=== PATIENT | male | born 1970 | race Caucasian/White ===

== ENCOUNTER 2019-04-26 04:27 | Inpatient (IN) | payer OTHER, MEDICAID, SELFPAY ==
[2019-04-26] VITALS (15 sets, daily range): BP systolic 123–151; BP diastolic 81–117; PULSE 85–112; RESP 14–22; TEMP 36.6–37.2; O2SAT 94–100; BMI 23.1
--- NOTE | 2019-04-26 04:35 | DI.RAD.S_ITS ---
PROCEDURE: XR CHEST 1V INDICATIONS: chest pain TECHNIQUE: One view of the chest was acquired. COMPARISON: None. FINDINGS: Surgical changes and devices: None. Lungs and pleura: Lungs are clear. No pleural effusions or pneumothorax. Mediastinum: Mediastinal contours appear normal. Heart size is normal. Bones and chest wall: No suspicious bony lesions. Overlying soft tissues appear unremarkable. IMPRESSION: No evidence acute pulmonary process. Dictated by: Varinder Becker M.D. on 04/26/2019 at 9:37 Approved by: Varinder Becker M.D. on 04/26/2019 at 9:37
[2019-04-26] MEDS: SODIUM CHLORIDE 0.9% 1,000 ML 1000 ML IV (04:50)
[2019-04-26 04:52] LABS: Add Manual Diff / Slide Review NO; Basophils Absolute Auto 0 /uL (0-100); Basophils Percent Auto 0.2 % (0-2); Eosinophils Absolute Auto 200 /uL (0-450); Hematocrit 47.8 % (41-53); Hemoglobin 16.6 g/dL (13.5-17.5); Lymphocytes Absolute Auto 3000 /uL (1100-4500); Lymphocytes Percent Auto 39.5 % (25-40); Mean Corpuscular HGB Conc 34.7 % (30-36); Mean Corpuscular Hemoglobin 28.2 PG (26-34); Mean Corpuscular Volume 81.4 fL (80-100); Monocytes Absolute Auto 600 /uL (0-900); Monocytes Percent Auto 8.2 % (3-14); Neutrophils Absolute Auto 3800 /uL (1500-7000); Neutrophils Percent Auto 49.1 % (50-75); Platelet Count 169 X10^3/uL (150-400); Red Blood Cell Count 5.88 X10^6/uL (4.5-5.9); Red Cell Distribution Width 15.9 % (11.6-14.8); White Blood Cell Count 7.7 X10^3/uL (4.5-11.0)
[2019-04-26] MEDS: LORazepam 2 MG/ML INJ IV ×3 (04:56→15:10)
[2019-04-26] MEDS: ONDANSETRON 4 MG/2 ML INJ IV ×2 (04:56→10:37)
[2019-04-26] MEDS: THIAMINE 100 MG in DEXTROSE 5 % IN WATER 50 ML 204 ML IV (05:02)
[2019-04-26 05:06] LABS: Acetaminophen < 10 ug/mL (10-30); Creatine Kinase 40 U/L (55-170); Ethanol (ETOH) 66 mg/dL; Lipase 198 U/L (23-300); PTT Partial Thromboplastin Tim 37 SECONDS (26.4-36.2); Salicylate < 1.0 mg/dL (<20)
[2019-04-26 05:16] LABS: D Dimer 226 ng/mL (<230)
[2019-04-26 05:18] LABS: Troponin I < 0.012 ng/mL (0.01-0.034)
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
[2019-04-26 05:20] LABS: Alanine Aminotransferase 156 IU/L (21-72); Albumin 4.7 g/dL (3.5-5.0); Albumin Globulin Ratio 1.2 (1.0-2.8); Alkaline Phosphatase 148 U/L (38-126); Aspartate Aminotransferase 248 IU/L (17-59); BUN Creatinine Ratio 4.3 (6-22); Bilirubin Total 3.1 mg/dL (0.2-1.3); Blood Urea Nitrogen 3 mg/dL (9-20); Calcium 9.7 mg/dL (8.4-10.2); Carbon Dioxide 21 mmol/L (22-32); Chloride 95 mmol/L (98-107); Estimated Glomerular Filt Rate > 60.0 mL/min (>60); Globulin 3.9 g/dL (1.7-4.1); Glucose 131 mg/dL (70-100); HEMOLYSIS < 15 (0-50); Sodium 136 mmol/L (137-145); Total Protein 8.6 g/dL (6.3-8.2)
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
--- NOTE | 2019-04-26 05:26 | DI.US.S_ITS ---
PROCEDURE: US ABDOMEN LIMITED INDICATIONS: RIGHT UPPER QUADRANT PAIN; ELEVATED TRANSAMINASES TECHNIQUE: Real-time focused scanning was performed of the abdomen, with image documentation. COMPARISON: None. FINDINGS: Severe fatty infiltration throughout the liver. No liver mass lesion is seen. Mild sludge is seen within the gallbladder lumen, non-obstructive. No evidence of acute cholecystitis. The common duct measures up to 4.6 mm, normal. The pancreas visualized appears normal also. IMPRESSION: Normal limited right upper quadrant ultrasound except for presence of severe fatty infiltration throughout the liver. Dictated by: Ernesto Betancur M.D. on 04/26/2019 at 8:13 Approved by: Ernesto Betancur M.D. on 04/26/2019 at 8:15
[2019-04-26 06:46] LABS: Bacteria Urine None Seen; RBC Urine None Seen (0-5/HPF); WBC Urine None Seen (0-5/HPF)
[2019-04-26 06:55] LABS: Culture Indicated Urine Cult Not Indicated; Urine Comments Microscopic Normal
[2019-04-26] MEDS: THIAMINE 100 MG TABLET PO (10:09)
[2019-04-26] MEDS: MULTIVITAMIN 1 TABLET 1 TAB PO (10:09)
[2019-04-26] MEDS: FOLIC ACID 1 MG TABLET PO (10:09)
[2019-04-26] MEDS: chlordiazePOXIDE 25 MG CAPSULE 50 MG PO (10:37)
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
--- NOTE | 2019-04-26 15:31 | PM.CHAP ---
Visited with Derek and his Linda. Had a productive spiritual conversation. Offered Prayer.
[2019-04-26] MEDS: MAGNESIUM SULFATE 2 GM, FOLIC ACID 1 MG, THIAMINE 100 MG, MULTIVITAMIN 10 ML in SODIUM ... IV (15:40)
[2019-04-26] MEDS: PANTOPRAZOLE 40 MG PACKET PO (16:56)
[2019-04-26] MEDS: chlordiazePOXIDE 25 MG CAPSULE 75 MG PO (17:48)
[2019-04-27] VITALS (12 sets, daily range): BP systolic 110–149; BP diastolic 76–100; PULSE 83–111; RESP 12–28; TEMP 35.9–37.5; O2SAT 95–99
[2019-04-27] MEDS: LORazepam 2 MG/ML INJ IV ×8 (00:01→23:48)
[2019-04-27 05:13] LABS: Add Manual Diff / Slide Review NO; Basophils Absolute Auto 100 /uL (0-100); Basophils Percent Auto 1.2 % (0-2); Eosinophils Absolute Auto 300 /uL (0-450); Eosinophils Percent Auto 5.6 % (2-4); Hematocrit 42.4 % (41-53); Hemoglobin 14.3 g/dL (13.5-17.5); Lymphocytes Absolute Auto 1500 /uL (1100-4500); Lymphocytes Percent Auto 33.1 % (25-40); Mean Corpuscular HGB Conc 33.8 % (30-36); Mean Corpuscular Hemoglobin 27.9 PG (26-34); Mean Corpuscular Volume 82.4 fL (80-100); Monocytes Absolute Auto 300 /uL (0-900); Monocytes Percent Auto 6.3 % (3-14); Neutrophils Absolute Auto 2500 /uL (1500-7000); Neutrophils Percent Auto 53.8 % (50-75); Platelet Count 91 X10^3/uL (150-400); Red Blood Cell Count 5.15 X10^6/uL (4.5-5.9); Red Cell Distribution Width 15.1 % (11.6-14.8); White Blood Cell Count 4.6 X10^3/uL (4.5-11.0)
[2019-04-27 05:20] LABS: Alanine Aminotransferase 97 IU/L (21-72); Albumin 3.5 g/dL (3.5-5.0); Alkaline Phosphatase 100 U/L (38-126); Aspartate Aminotransferase 119 IU/L (17-59); BUN Creatinine Ratio 8.6 (6-22); Bilirubin Total 3.9 mg/dL (0.2-1.3); Blood Urea Nitrogen 6 mg/dL (9-20); Carbon Dioxide 27 mmol/L (22-32); Chloride 98 mmol/L (98-107); Estimated Glomerular Filt Rate > 60.0 mL/min (>60); Globulin 3.5 g/dL (1.7-4.1); Glucose 99 mg/dL (70-100); HEMOLYSIS < 15 (0-50); Magnesium 2.2 mg/dL (1.6-2.3); Potassium 3.4 mmol/L (3.4-5.1); Sodium 134 mmol/L (137-145)
[2019-04-27] MEDS: PANTOPRAZOLE 40 MG PACKET PO (06:37)
--- NOTE | 2019-04-27 07:07 | PC.NURSE ---
Patient has been mostly calm and cooperative, sleeping, CIWA 8, PO Librium scheduled, 1mg IV Ativan x1. SR/ST, other VSS.
[2019-04-27] MEDS: FOLIC ACID 1 MG TABLET PO (07:35)
[2019-04-27] MEDS: MULTIVITAMIN 1 TABLET 1 TAB PO (07:35)
[2019-04-27] MEDS: chlordiazePOXIDE 25 MG CAPSULE 75 MG PO ×2 (07:35)
[2019-04-27] MEDS: SODIUM CHLORIDE 0.9% FLUSH 10 ML IV ×3 (07:37→23:48)
--- NOTE | 2019-04-27 10:07 | PM.PN.1 ---
Subjective Date Patient Seen: 04/27/19 Interval history: The patient is a 49-year-old male who was admitted to the hospital for alcohol withdrawal and delirium tremens. He is noted to have significant diaphoresis today. He does report some continued hallucinations. He describes seeing flashing lights out of the right side of his eye when he is standing and moving. In addition the patient complains of some pain around the right breast. Apparently it was swollen previously but has improved in size. I offered the possibility of an ultrasound of the right breast which the patient declined. He has had no nausea or vomiting. He continues to have tremor. His CIWA scores been 8-10. He tolerates the Librium very well however he has been alert and awake most of the time. He continues to complain of a headache which is chronic. Exam Vital Signs (past 8 hours): - 04/27/19 04:55 04/27/19 05:33 04/27/19 07:33 Temperature 96.7 F L 97.9 F Pulse Rate 95 H 90 Respiratory Rate 28 H 24 Blood Pressure 134/86 142/84 H Pulse Oximetry 95 95 98 04/27/19 08:30 Temperature Pulse Rate Respiratory Rate Blood Pressure Pulse Oximetry 96 Oxygen Delivery Method Room Air Oxygen Flow Rate 0 Narrative Exam Narrative: Pleasant male ill-appearing in no acute distress Lungs: Clear to auscultation Chest: Right breast with mildly tender palpation of the areola. Small quarter size tender area beneath the breast ? cyst Patient has bilateral gynecomastia with tenderness on the right CV: RRR nl Sl S2 Abd: soft/ mild right sided tenderness. No rebound, palpable masses, no rigidity Ext: no edema Objective Labs Result Diagrams: 04/27/19 04:50 04/27/19 04:50 Labs: Laboratory Results - last 24 hr 04/26/19 04/27/19 04/27/19 14:54 04:50 04:50 WBC 4.6 RBC 5.15 Hgb 14.3 Hct 42.4 MCV 82.4 MCH 27.9 MCHC 33.8 RDW 15.1 H Plt Count 91 L Neut % (Auto) 53.8 Lymph % (Auto) 33.1 [place] % (Auto) 6.3 Eos % (Auto) 5.6 H Baso % (Auto) 1.2 Neut # (Auto) 2500 Lymph # (Auto) 1500 [place] # (Auto) 300 Eos # (Auto) 300 Baso # (Auto) 100 Sodium 134 L Potassium 3.4 Chloride 98 Carbon Dioxide 27 BUN 6 L Creatinine 0.70 Estimated GFR > 60.0 BUN/Creatinine Ratio 8.6 Glucose 99 Calcium 9.0 Magnesium 2.2 Total Bilirubin 3.9 H AST 119 H ALT 97 H Alkaline Phosphatase 100 Total Protein 7.0 Albumin 3.5 Globulin 3.5 Albumin/Globulin Ratio 1.0 Nasal Screen MRSA (PCR) Negative for mrsa Assessment & Plan Assessment & Plan narrative: 1. Alcohol withdrawal with delirium tremens. Patient continues to be symptomatic. He has tachycardia diaphoresis and hallucinations. Plan today will be to increase his Lipitor to 100 q.6 hours plus as needed Ativan. Will continue to monitor CIWA score. 2. Fatty liver mild tenderness to palpation 3. Alcoholic hepatitis, improved hepatitis serology pending 4. Hyponatremia, mild will continue to follow 5. Thrombocytopenia, likely related to alcohol. Will continue Librium, Ativan as needed. Patient has been offered outpatient treatment for his alcoholism. Will defer further workup of the right breast tenderness. Offered ultrasound which the patient declined. Will continue to monitor and follow closely. Quality VTE Deep Vein Thrombosis/Pulmonary Embolism Present on Admission: No
--- NOTE | 2019-04-27 10:10 | P.PN_ITS ---
Subjective Date Patient Seen: 04/27/19 Interval history: The patient is a 49-year-old male who was admitted to the hospital for alcohol withdrawal and delirium tremens. He is noted to have significant diaphoresis today. He does report some continued hallucinations. He describes seeing flashing lights out of the right side of his eye when he is standing and moving. In addition the patient complains of some pain around the right breast. Apparently it was swollen previously but has improved in size. I offered the possibility of an ultrasound of the right breast which the patient declined. He has had no nausea or vomiting. He continues to have tremor. His CIWA scores been 8-10. He tolerates the Librium very well however he has been alert and awake most of the time. He continues to complain of a headache which is chronic. Exam Vital Signs (past 8 hours): - 04/27/19 04:55 04/27/19 05:33 04/27/19 07:33 Temperature 96.7 F L 97.9 F Pulse Rate 95 H 90 Respiratory Rate 28 H 24 Blood Pressure 134/86 142/84 H Pulse Oximetry 95 95 98 04/27/19 08:30 Temperature Pulse Rate Respiratory Rate Blood Pressure Pulse Oximetry 96 Oxygen Delivery Method Room Air Oxygen Flow Rate 0 Narrative Exam Narrative: Pleasant male ill-appearing in no acute distress Lungs: Clear to auscultation Chest: Right breast with mildly tender palpation of the areola. Small quarter size tender area beneath the breast ? cyst Patient has bilateral gynecomastia with tenderness on the right CV: RRR nl Sl S2 Abd: soft/ mild right sided tenderness. No rebound, palpable masses, no rigidity Ext: no edema Objective Labs Result Diagrams: 04/27/19 04:50 04/27/19 04:50 Labs: Laboratory Results - last 24 hr 04/26/19 04/27/19 04/27/19 14:54 04:50 04:50 WBC 4.6 RBC 5.15 Hgb 14.3 Hct 42.4 MCV 82.4 MCH 27.9 MCHC 33.8 RDW 15.1 H Plt Count 91 L Neut % (Auto) 53.8 Lymph % (Auto) 33.1 [place] % (Auto) 6.3 Eos % (Auto) 5.6 H Baso % (Auto) 1.2 Neut # (Auto) 2500 Lymph # (Auto) 1500 [place] # (Auto) 300 Eos # (Auto) 300 Baso # (Auto) 100 Sodium 134 L Potassium 3.4 Chloride 98 Carbon Dioxide 27 BUN 6 L Creatinine 0.70 Estimated GFR > 60.0 BUN/Creatinine Ratio 8.6 Glucose 99 Calcium 9.0 Magnesium 2.2 Total Bilirubin 3.9 H AST 119 H ALT 97 H Alkaline Phosphatase 100 Total Protein 7.0 Albumin 3.5 Globulin 3.5 Albumin/Globulin Ratio 1.0 Nasal Screen MRSA (PCR) Negative for mrsa Assessment & Plan Assessment & Plan narrative: 1. Alcohol withdrawal with delirium tremens. Patient continues to be symptomatic. He has tachycardia diaphoresis and hallu cinations. Plan today will be to increase his Lipitor to 100 q.6 hours plus as needed Ativan. Will continue to monitor CIWA score. 2. Fatty liver mild tenderness to palpation 3. Alcoholic hepatitis, improved hepatitis serology pending 4. Hyponatremia, mild will continue to follow 5. Thrombocytopenia, likely related to alcohol. Will continue Librium, Ativan as needed. Patient has been offered outpatient treatment for his alcoholism. Will defer further workup of the right breast tenderness. Offered ultrasound which the patient declined. Will continue to monitor and follow closely. Quality VTE Deep Vein Thrombosis/Pulmonary Embolism Present on Admission: No
[2019-04-27] MEDS: chlordiazePOXIDE 25 MG CAPSULE 100 MG PO ×3 (11:34→23:47)
[2019-04-27] MEDS: THIAMINE 100 MG TABLET PO (11:35)
--- NOTE | 2019-04-27 14:40 | DIET.PN ---
Dietary Progress Note Assessment: 49y M referred to nutrition for reported recent weight loss. Pt experiencing etoh withdrawls, reports consuming 20 beers in usual day. Per pt's partner, he usually eats 1 meal per day (meat and potatoes) but past 3 weeks has been eating once every 3 days. Pt has normal BMI of 24.[address] observed considerable subcutaneous fat for frame size. HT: 187.9cm WT: 86.1kg UBW: 91kg (5% loss in 2 weeks) BMI: 24.2 Labs: Bili: 3.9 (H), AST 119 (H), ALT 97 (H) Nutrition Diagnosis: Acute Moderate PCM r/t etoh dependence with withdrawl sx aeb <50% EER in 5d c <75% EER for 1 mo prior, substance withdrawl and DTs (etoh), mild muscle losses in temples, deltoid, ribs, calves, and altered liver enzyme labs (bili, AST, ALT). Interventions: Pt enjoying [facility] food specialist options, consuming 3 meals/d here. On etoh withdrawl protocol of folic acid and thiamin. Monitoring/Evaluations: wt, associated labs, I&Os
--- NOTE | 2019-04-27 14:44 | PC.NURSE ---
pt drowsy but oriented pedrito scires 06/25, loraz 2mg iv given just one time this shift along with increased dose or po librium- has been quite appropriate - sig other at bedside and helpful with care - pt tolerating gen diet fair denies n/v , ambulates with assist of one
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
--- NOTE | 2019-04-27 19:33 | PC.NURSE ---
Addendum entered by Melita Flynn R.N. 04/27/19 19:49: 194 - PLASTIC EXTRUSION OPERATOR came down and discussed concerns with patient and significant other. Stated reasons that patient is unstable to discharge safely at this time and that if he were to leave it would be AMA. Discussed risks with patient and significant other thoroughly. Patient states he is concerned about his job. Offered to have social work job titles consult which patient promptly refused. Patient remained calm, but anxious throughout discussion. States that he will stay this evening and follow medical advice. Original Note: 1929 - Patient's significant other came out of room and asked to talk with this nurse with patient. Patient and significant other expressed wishes to be discharged this evening. Discussed hospitalization with patient and significant other and that it would be in his best interest to stay until medically cleared. Continued to state calmly that they want to leave this evening and are concerned about work. Reiterated risks of leaving and benefits of staying. Notified ALIREZA Moraes of patient wanting to discharge. States that she will come down and talk to patient.
[2019-04-28] MEDS: LORazepam 2 MG/ML INJ IV ×4 (00:04→03:49)
[2019-04-28] MEDS: SODIUM CHLORIDE 0.9% FLUSH 10 ML IV ×4 (00:22→08:24)
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
[2019-04-28 02:03] VITALS: BP 116/86; PULSE 99; RESP 16; TEMP 35.8; O2SAT 94
[2019-04-28 03:48] VITALS: BP 129/82; PULSE 105; RESP 16; TEMP 36.2; O2SAT 98
[2019-04-28 05:18] LABS: Add Manual Diff / Slide Review NO; Basophils Absolute Auto 0 /uL (0-100); Basophils Percent Auto 0.4 % (0-2); Eosinophils Absolute Auto 200 /uL (0-450); Eosinophils Percent Auto 5.3 % (2-4); Hematocrit 40.3 % (41-53); Hemoglobin 13.7 g/dL (13.5-17.5); Lymphocytes Absolute Auto 1600 /uL (1100-4500); Mean Corpuscular HGB Conc 33.9 % (30-36); Mean Corpuscular Hemoglobin 28.2 PG (26-34); Mean Corpuscular Volume 83.3 fL (80-100); Monocytes Absolute Auto 300 /uL (0-900); Monocytes Percent Auto 6.9 % (3-14); Neutrophils Absolute Auto 2200 /uL (1500-7000); Neutrophils Percent Auto 50.4 % (50-75); Platelet Count 90 X10^3/uL (150-400); Red Blood Cell Count 4.84 X10^6/uL (4.5-5.9); Red Cell Distribution Width 15.2 % (11.6-14.8); White Blood Cell Count 4.4 X10^3/uL (4.5-11.0)
[2019-04-28 05:24] LABS: Alanine Aminotransferase 86 IU/L (21-72); Albumin 3.4 g/dL (3.5-5.0); Albumin Globulin Ratio 1.1 (1.0-2.8); Alkaline Phosphatase 88 U/L (38-126); Aspartate Aminotransferase 82 IU/L (17-59); BUN Creatinine Ratio 6.3 (6-22); Bilirubin Total 2.6 mg/dL (0.2-1.3); Blood Urea Nitrogen 5 mg/dL (9-20); Calcium 9.5 mg/dL (8.4-10.2); Carbon Dioxide 30 mmol/L (22-32); Chloride 100 mmol/L (98-107); Estimated Glomerular Filt Rate > 60.0 mL/min (>60); Globulin 3.2 g/dL (1.7-4.1); Glucose 127 mg/dL (70-100); HEMOLYSIS < 15 (0-50); Potassium 3.6 mmol/L (3.4-5.1); Sodium 137 mmol/L (137-145); Total Protein 6.6 g/dL (6.3-8.2)
[2019-04-28] MEDS: chlordiazePOXIDE 25 MG CAPSULE 100 MG PO (05:55)
[2019-04-28] MEDS: PANTOPRAZOLE 40 MG TABLET PO (05:59)
[2019-04-28 08:00] VITALS: O2SAT 95
[2019-04-28 08:16] VITALS: BP 124/73; PULSE 95; RESP 16; TEMP 36.4; O2SAT 94
[2019-04-28] MEDS: THIAMINE 100 MG TABLET PO (08:23)
[2019-04-28] MEDS: FOLIC ACID 1 MG TABLET PO (08:24)
[2019-04-28] MEDS: MULTIVITAMIN 1 TABLET 1 TAB PO (08:24)
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
--- NOTE | 2019-04-28 10:51 | CM.DPC ---
DCP AMA Per MD, pt continues to score on CIWA protocol and still receiving Ativan and improving but not medically stable to discharge yet today. had discussion with pt and sig other bedside regarding d/c planning for abstaining from alcohol due to medical impact and severity. SW met bedside with pt and significant other Linda and explained role and they stated that they are frustrated with the attitude of most staff here treating me like I'm a child or cretin and I know whats best for myself and life. Pt and S.O. discussed feeling more stressed here in the hospital with staff inquiring multiple times about pt's drinking and need for treatment and are requesting to leave AMA and sign the necessary pwk. SW discussed the medical concerns and encouraged them to wait until later in the day and receive the current care from the RN that pt feels comfortable with today before making the decision. SW provided the Patient Complaint Reporting Form to provide their feedback to the hospital and they were appreciative. Pt continues to endorse that he declines outpt or inpt CD resources and they have a plan of eventually moving closer to [place] and ways for the pt to remain abstinent from alcohol without the use of treatment. Pt and S.O. appreciative of the ability of venting about their frustrations. ELIJAH updated RN and MD and will continue to follow but later in the morning RN updated ELIJAH that pt decided to sign out AMA and left the hospital via Sig Other POV. FREDDY Montoya
--- NOTE | 2019-04-28 10:57 | PC.NURSE ---
After extensive discussion with Ashok and brand planner, pt. requesting to leave hospital. Reiterated need for continued monitoring of alcohol-withdrawal signs and symptoms, and potential for worsening condition should he leave. States understands risks involved, but adamant on desire to leave immediately. Cooperative with allowing d/c of PIV and signing required AMA form. Escorted in by Antonella to POV driven by . Instructed her to monitor condition and seek medical intervention if necessary. All personal effects with pt. at discharge.
[2019-04-28 16:17] LABS: Hepatitis A Antibody IgM NONREACTIVE (NONREACTIVE); Hepatitis Acute Panel Interp 0.16; Hepatitis B Core Antibody IgM NONREACTIVE (NONREACTIVE); Hepatitis B Surface Antigen NONREACTIVE (NONREACTIVE); Hepatitis C Antibody NONREACTIVE
== END 2019-04-28 09:45 | disposition left against medical advice (07) | DRG 770 ==
LOC: ED 06:26 → AC 08:08 → ICU 04-27 09:22
PROVIDERS: Internal Medicine; Admitting Provider Nurse Practitioner Gerontology; Emergency Provider Emergency Medicine; Visit Provider Nurse Practitioner Gerontology
DX: F10.231 Alcohol dependence with withdrawal delirium (principal); K70.10 Alcoholic hepatitis without ascites; Y90.3 Blood alcohol level of 60-79 mg/100 ml; D69.6 Thrombocytopenia, unspecified; G40.909 Epilepsy, unspecified, not intractable, without status epilepticus; E87.1 Hypo-osmolality and hyponatremia; K92.1 Melena; K21.9 Gastro-esophageal reflux disease without esophagitis; K76.0 Fatty (change of) liver, not elsewhere classified; N64.4 Mastodynia
CPT/HCPCS: 36415; 36591; 71045; 76705; 80053; 80074; 80320; 80329; 81003; 81015; 82550; 83690; 83735; 84484; 85025; 85379; 85610; 85730; 87797; 93005; 93010; 96374; 96375; 96376; 99284; G0480; J2060; J2405; J3475